=== PATIENT | male | born 1975 | race Caucasian/White ===

== ENCOUNTER 2024-12-20 16:29 | Outpatient (CLI) | payer BC, SELFPAY | END 2024-12-20 16:30 | disposition home or self-care (01) | LOC: CT 16:30 | PROVIDERS: Visit Provider Internal Medicine Pulmonary Disease | DX: R91.1 Solitary pulmonary nodule (principal); R91.8 Other nonspecific abnormal finding of lung field | CPT/HCPCS: 71250 ==